=== PATIENT | male | born 1975 | race Caucasian/White ===

== ENCOUNTER 2020-06-20 10:09 | Outpatient (CLI) | payer MEDICAID | END 2020-06-20 10:10 | disposition home or self-care (01) | LOC: DI 10:09 | PROVIDERS: ATTEND Family Medicine | DX: I51.7 Cardiomegaly (principal) | CPT/HCPCS: 93306 ==

== ENCOUNTER 2020-07-31 14:07 | Outpatient (CLI) | payer MEDICAID ==
[2020-07-31 14:50] LABS: CHOL/HDL RATIO 8.9 (<5.0); CHOLESTEROL 187 mg/dL; HDL CHOLESTEROL 21 mg/dL; LDL CHOLESTEROL,CALCULATED 128 mg/dL; LDL/HDL RATIO 6.1 (<3.6); VLDL CHOLESTEROL 38 mg/dL
== END 2020-07-31 14:08 | disposition home or self-care (01) ==
LOC: LAB 14:07
PROVIDERS: ATTEND Internal Medicine Cardiovascular Disease
DX: Z00.00 Encounter for general adult medical examination without abnormal findings (principal)
CPT/HCPCS: 36415; 80061; 83721